=== PATIENT | male | born 1955 | race Caucasian/White ===

== ENCOUNTER 2018-04-14 16:17 | Outpatient (CLI) | payer SELFPAY | END 2018-04-14 16:18 | disposition critical access hospital (66) | LOC: EMS 16:17 | PROVIDERS: ATTEND Surgery | DX: R55 Syncope and collapse (principal); R53.1 Weakness; R42 Dizziness and giddiness | CPT/HCPCS: A0425; A0427 ==

== ENCOUNTER 2018-04-14 16:38 | Observation (INO) | payer SELFPAY ==
--- NOTE | 2018-04-14 16:53 | ED Physician Documentation ---
History of Present Illness - Stated complaint Stated Complaint: SYNCOPE - Chief complaint Chief Complaint: General - History obtained from History obtained from: Patient - History of Present Illness Timing: Today (Healthy 62-year-old gentleman. He was sitting on a barstool with friends. He had one beer. He was about to have a second 1, but started to feel flushed and then syncopized falling off the barstool without injury. He feels nauseous now and out of sorts but there is no associated chest pain or trouble breathing. No head injury or headache. He has never had a syncopal episode before.) - Additonal information Additional information: Prehospital his blood sugar was 162 and per report orthostatics were negative. Review of Systems Ten Systems: 10 systems reviewed and negative Constitutional: denies: Fever, Chills Cardiac: denies: Chest pain / pressure, Palpitations Respiratory: denies: Dyspnea, Cough GI: reports: Nausea. denies: Abdominal Pain, Vomiting PD PAST MEDICAL HISTORY - Past Medical History Past Medical History: No - Allergies Allergies/Adverse Reactions: Allergies Allergy/AdvReac Type Severity Reaction Status Date / Time No Known Drug Allergies Allergy Verified 04/14/18 16:49 - Social History Does the pt smoke?: Yes Smoking Status: Current every day smoker Does the pt drink ETOH?: Yes Does the pt have substance abuse?: No - Family History Family history: reports: Non contributory PD ED PE NORMAL - Vitals Vital signs reviewed: Yes - General General: Alert and oriented X 3, No acute distress - HEENT HEENT: PERRL, EOMI (No nystagmus) - Neck Neck: Supple, no meningeal sign, No bony TTP - Cardiac Cardiac: RRR, No murmur - Respiratory Respiratory: No respiratory distress, Clear bilaterally - Abdomen Abdomen: Normal bowel sounds, Soft, Non tender - Back Back: No CVA TTP, No spinal TTP - Derm Derm: Normal color, Warm and dry - Extremities Extremities: No edema, No calf tenderness / cord - Neuro Neuro: Alert and oriented X 3, Normal speech - Psych Psych: Normal mood, Normal affect Results - Vitals Vitals: Vital Signs - 24 hr 04/14/18 04/14/18 16:41 16:46 Temperature 36.1 C L 36.1 C L Heart Rate 76 73 Respiratory 22 16 Rate Blood Pressure 122/67 122/67 O2 Saturation 97 95 Oxygen O2 Source Room air - EKG (time done) 1648 Rate: Rate (enter#) (72) Rhythm: NSR (with PVC) Barre: Normal Intervals: Normal MO QRS: Normal Ischemia: Non specific changes (Lg R V2) Computer interpretation: Agree with computer - Labs Labs: Laboratory Tests 04/14/18 04/14/18 04/14/18 16:59 16:59 16:59 WBC 7.9 RBC 4.06 L Hgb 13.2 L Hct 39.1 L MCV 96.5 H MCH 32.6 H MCHC 33.8 RDW 13.4 Plt Count 297 MPV 7.4 Neut # (Auto) 4.3 Lymph # (Auto) 2.9 Gregg # (Auto) 0.4 Eos # (Auto) 0.2 Baso # (Auto) 0.0 Absolute Nucleated RBC 0.00 Nucleated RBC % 0.0 Sodium 135 Potassium 3.4 L Chloride 102 Carbon Dioxide 23 Anion Gap 10.0 BUN 11 Creatinine 0.8 Estimated GFR (MDRD) 98 Glucose 103 H Calcium 7.6 L Magnesium 2.0 Total Bilirubin 0.5 AST 15 ALT 13 Alkaline Phosphatase 64 Troponin I < 0.04 Total Protein 6.2 L Albumin 3.7 Globulin 2.5 Albumin/Globulin Ratio 1.5 Lipase 22 Ethyl Alcohol 17.6 PD MEDICAL DECISION MAKING - ED course ED course: This is a otherwise healthy 62-year-old gentleman who is a heavy smell her who had a syncopal episode that was only briefly premonition all falling off a barstool. He is not intoxicated. Lab work is unremarkable. EKG shows a large R-wave in V2, otherwise no ischemic changes. He is at high risk for cardiac syncope given his age and tobacco use and deserves prolonged monitoring so I called the hospitalist service at 5:28 PM. - Sepsis Event Vital Signs: Vital Signs - 24 hr 04/14/18 04/14/18 16:41 16:46 Temperature 36.1 C L 36.1 C L Heart Rate 76 73 Respiratory 22 16 Rate Blood Pressure 122/67 122/67 O2 Saturation 97 95 Oxygen O2 Source Room air Departure - Departure Disposition: ED Place in Observation Clinical Impression: Syncope Qualifiers: Syncope type: unspecified Qualified Code(s): R55 - Syncope and collapse Condition: Stable
[2018-04-14 17:02] LABS: BASOPHILS % (AUTO) 0.6 %; EOSINOPHILS # (AUTO) 0.2 10^3/uL (0.0-0.7); EOSINOPHILS % (AUTO) 2.5 %; HGB - HEMOGLOBIN 13.2 g/dL (14.0-18.0); LYMPHOCYTES # (AUTO) 2.9 10^3/uL (1.5-3.5); LYMPHOCYTES % (AUTO) 36.7 %; MEAN CORPUSCULAR HEMOGLOBIN 32.6 pg (27.0-31.0); MEAN CORPUSCULAR HGB CONC 33.8 g/dL (32.0-36.0); MEAN CORPUSCULAR VOLUME 96.5 fL (80.0-94.0); MEAN PLATELET VOLUME 7.4 fL (7.4-11.4); MONOCYTES # (AUTO) 0.4 10^3/uL (0.0-1.0); MONOCYTES % (AUTO) 5.6 %; NEUTROPHILS # (AUTO) 4.3 10^3/uL (1.5-6.6); NEUTROPHILS % (AUTO) 54.6 %; PLT - PLATELET COUNT 297 10^3/uL (130-450); RED BLOOD COUNT 4.06 10^6/uL (4.70-6.10); RED CELL DISTRIBUTION WIDTH 13.4 % (12.0-15.0); WHITE BLOOD COUNT 7.9 x10^3/uL (4.8-10.8)
[2018-04-14 17:16] LABS: ALBUMIN 3.7 g/dL (3.2-5.5); ALBUMIN/GLOBULIN RATIO 1.5 (1.0-2.2); BILIRUBIN,TOTAL 0.5 mg/dL (0.2-1.0); CALCIUM 7.6 mg/dL (8.5-10.3); CREATININE 0.8 mg/dL (0.6-1.2); TOTAL PROTEIN 6.2 g/dL (6.7-8.2)
[2018-04-14] MEDS ORDERED: SODIUM CHLORIDE 0.9% 1,000 ML IV ONE (19:22)
[2018-04-14] MEDS ORDERED: SODIUM CHLORIDE FLUSH 0.9% 10 ML SYRINGE IVP PRN (19:54)
--- NOTE | 2018-04-14 20:18 | HISTORY & PHYSICAL EXAMINATION ---
Chief Complaint - Chief Complaint Chief Complaint: syncope History of Present Illness - Admitted From Admitted From:: [facility] - History Obtained From History obtained from: Patient, ED physician Exam Limitations: none noted - History of Present Illness HPI Comment/Other: Mr. Brian Harrell is a very pleasant 62-year-old gentleman who has a history of smoking all of his adult life but who denies any type of past medical history other than some orthopedic surgeries, and who was having a beer earlier this evening with a friend when all of a sudden he began to feel flushed. He denies any type of dizziness or room spinning or amaurosis. He says he felt flushed and the next thing he knew he was surrounded by people while he was laying on the floor. He was brought up to his feet by his friends and sat down on the barstool again but again fell down, losing consciousness. He was then kept on the floor until he could be brought to the emergency department by EMS. At the emergency department the patient was assessed and found to be without any acute injury. He was nauseous and felt not quite himself mentally but otherwise denied any type of chest pain or difficulty breathing. There was no head injury noted. While in transport the patient's blood sugar was 162 and orthostatic checks no hypotension. An EKG showed a large R-wave in V2, otherwise there are no ischemic changes noted. At this time we will admit the patient to an observational bed on telemetry, monitor his EKG overnight, and obtain an echocardiogram, carotid ultrasound, and MRI of his brain. We will address any other comorbidities as they arise, again however the patient says that he takes no medications and has no prior medical history, and has unremarkable labs. History - Past Medical History Cardiovascular: reports: None Respiratory: reports: None Neuro: reports: None Endocrine/Autoimmune: reports: None GI: reports: None : reports: None HEENT: reports: None Psych: reports: None Musculoskeletal: reports: None Derm: reports: None MRSA Hx?: No - Past Surgical History Ortho: reports: ACL reconstruction, Other (Bilateral wrist fracture repairs with pinning.) - Family & Social History Family History: Mother: Alive and Well, Father: , Alzheimer's Disease, CVA/TIA (father also had hydrocephalus) Family History Comment/Other: The patient denies any knowledge of any family history of high blood pressure, heart disease, diabetes, or cancer. Living arrangement: At home Living Situation: Alone - Substance History Use: Uses substance without health or social issues: Tobacco, Alcohol Abuse: Recurrent use of substance despite neg consequences: NONE Dependence: Experiences withdrawal or developed tolerances: NONE Tobacco Details: Cigarettes - POLST Patient has POLST: No POLST Status: Full Code Meds/Allgy - Home Medications Home Medications: Ambulatory Orders Medication Instructions Recorded Confirmed No Known Home Medications [No 04/14/18 04/14/18 Known Home Medications] - Allergies Allergies/Adverse Reactions: Allergies Allergy/AdvReac Type Severity Reaction Status Date / Time No Known Drug Allergies Allergy Verified 04/14/18 16:49 Review of Systems - Constitutional Constitutional: denies: Fatigue, Fever, Chills, Night sweats - Eyes Eyes: denies: Pain, Irritation, Amaurosis, Blurred vision, Field loss, Vision loss, Dipolpia - Ears, Nose & Throat Ears, Nose & Throat: denies: Ear pain, Hearing loss, Hearing aids, Tinnitus, Vertigo, Nasal pain, Nasal discharge, Nosebleeds - Cardiovascular Cariovascular: reports: Lightheadedness, Syncope. denies: Irregular heart rate , Palpitations, Chest pain, Edema, Orthopnea - Respiratory Respiratory: denies: Cough, Sputum production, Wheezing, Snoring, Hemoptysis, Orthopnea, SOB at rest, SOB with exertion - Gastrointestinal Gastrointestinal: denies: Abdominal pain, Abdominal distention, Constipation, Diarrhea, Rectal bleeding, Nausea, Vomiting - Genitourinary Genitourinary: denies: Dysuria, Frequency, Urgency, Hematuria - Musculoskeletal Musculoskeletal: denies: Muscle pain, Back pain, Muscle aches, Stiffness - Integumentary Integumentary: denies: Rash, Pruritis, Lesions, Dryness - Neurological Neurological: reports: General weakness, Other (syncope x 2). 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 denies: Depression, Anxiety, Suicidal, Delusions - Endocrine Endocrine: denies: Polyuria, Polydypsia, Polyphagia - Hematologic/Lymphatic Hematologic/Lymphatic: denies: Anemia, Bruising, Petechiae, Lymphadenopathy - All Other Systems All Other Systems: reports: Reviewed and negative Exam - Vital Signs Reviewed Vital Signs: Yes Vital Signs: Vital Signs x48h Temp Pulse Resp BP Pulse Ox 04/14/18 19:58 83 19 120/77 96 04/14/18 19:10 36.4 C L 86 17 130/80 97 04/14/18 18:00 36.1 C L 70 16 100/65 97 04/14/18 16:46 36.1 C L 73 16 122/67 95 04/14/18 16:41 36.1 C L 76 22 122/67 97 - Physical Exam General Appearance: positive: No acute distress, Alert Eyes Bilateral: positive: Normal inspection, PERRL, EOMI, No lid inflammation, Conjunctivae nml, No scleral icterus ENT: positive: ENT inspection nml, Pharynx nml, No signs of dehydration. negative: Oral lesions Neck: positive: Nml inspection, Thyroid nml, No JVD, Trachea midline. negative : Thyromegaly Respiratory: positive: Chest non-tender, No respiratory distress, Breath sounds nml. negative: Wheezes, Rales, Rhonchi Cardiovascular: positive: Regular rate & rhythm, No murmur, No gallop Peripheral Pulses: positive: 1+ Abdomen: positive: Non-tender, No organomegaly, Nml bowel sounds, No distention. negative: Guarding, Rebound Back: positive: Nml inspection. negative: CVA tenderness (R), CVA tenderness (L ) Skin: positive: Color nml, No rash, Warm, Dry. negative: Cyanosis Extremities: positive: Non-tender, Full ROM, Nml appearance, No pedal edema Neurologic/Psychiatric: positive: Oriented x3, CN's nml (2-12), Motor nml, Sensation nml, Mood/affect nml Conclusion/Plan - Problem List (1) Syncope Conclusion/Plan: The patient admits to a syncopal event earlier today which was witnessed and without any seizures. Shortly afterwards the patient was brought to his feet by his friends and again passed out. This seems more like one extended event in 2 separate events. At any rate the patient will have a workup consisting of an echocardiogram, carotid ultrasound, MRI of his brain. He will be on telemetry in an observation bed overnight. Qualifiers: Syncope type: unspecified Qualified Code(s): R55 - Syncope and collapse (2) Macrocytic anemia Conclusion/Plan: The patient has mild anemia with macrocytosis. His RDW was within normal limits. He admits to only drinking 1 beer 3 times a week however this may not be completely accurate. I will check his B12 and folate levels. - Lab Results Lab results reviewed: Yes Fish Bones: 04/14/18 16:59 04/14/18 16:59 Core Measures - Anticipated LOS I expect patient to be DC'd or transferred within 96 hours.: Yes - DVT/VTE - Prophylaxis VTE/DVT Device ordered at admit?: Yes
[2018-04-14] MEDS: D5.45NS W/20 MEQ KCL 1,000 ML IV SCH (21:21)
--- NOTE | 2018-04-14 22:42 | XRAY Report ---
Procedure Date: 04/14/2018 Accession Number: [id number] / [id number] Procedure: XR - Chest 1 View X-Ray CPT Code: 04504 FULL RESULT: EXAM: CHEST RADIOGRAPHY EXAM DATE: 04/14/2018 10:20 PM. CLINICAL HISTORY: Syncope in a long time smoker. COMPARISON: 11/08/2010. TECHNIQUE: 1 view. FINDINGS: Lungs/Pleura: No focal opacities evident. No pleural effusion. No pneumothorax. Mediastinum: Within exam limitations, the cardiomediastinal contour is normal. Other: No bony abnormality noted. IMPRESSION: Normal single view chest. RADIA
--- NOTE | 2018-04-15 02:59 | Ultrasound Report ---
Procedure Date: 04/14/2018 Accession Number: [id number] / [id number] Procedure: US - Carotid Doppler Complete CPT Code: FULL RESULT: EXAM: BILATERAL CAROTID AND VERTEBRAL ARTERY DUPLEX DOPPLER ULTRASOUND: EXAM DATE: 04/14/2018 11:26 PM CLINICAL HISTORY: Syncope. COMPARISON: None. TECHNIQUE: Grayscale imaging, color Doppler, and duplex spectral Doppler were used to evaluate the carotid and vertebral arteries bilaterally. Static images were obtained. FINDINGS: No significant plaque is identified in the right or left common or internal carotid arteries. Normal antegrade flow is present in bilateral vertebral arteries. VELOCITIES (cm/sec): Right: RCCA Mid: PSV 94.2 cm/sec. RCCA Dist: PSV 100.7 cm/sec. MILAGROS Prox: PSV 111.2 cm/sec, EDV 25.3 cm/sec. MILAGROS Mid: PSV 80.9 cm/sec, EDV 27.8 cm/sec. MILAGROS Dist: PSV 52.3 cm/sec, EDV 19.0 cm/sec. RECA: PSV 166 cm/sec. RVA: PSV 71.3 cm/sec. RVA flow direction: Antegrade. ICA/CCA: 0.86 Left: LCCA Mid: PSV 116.2 cm/sec. LCCA Dist: PSV 117.5 cm/sec. LICA Prox: PSV 94.7 cm/sec, EDV 31.6 cm/sec. LICA Mid: PSV 80.9 cm/sec, EDV 29 cm/sec. LICA Dist: PSV 69.5 cm/sec, EDV 15 cm/sec. LECA: PSV 87.2 cm/sec. LVA: PSV 99.8 cm/sec. LVA flow direction: Antegrade. ICA/CCA: 0.69 ICA diameter stenosis: Right: <50% by velocity and <70% by NASCET criteria. Left: <50% by velocity and <70% by NASCET criteria. IMPRESSION: 1. Mild bilateral carotid artery plaquing. 2. In the right carotid artery there are no elevated carotid artery velocities to suggest hemodynamically significant stenosis. 3. In the left carotid artery there are no elevated carotid artery velocities to suggest hemodynamically significant stenosis. 4. Normal antegrade flow is present in bilateral vertebral arteries. General Recommendations: Stenosis =50% ICA - Follow-up ultrasound 6-12 months Stenosis <50% ICA - High Risk Patient with plaque - Follow-up ultrasound 1-2 years Normal Study but High Risk Patient - Follow-up ultrasound 3-5 years Management recommendations and diagnostic criteria are based on current IAC endorsed standards in Carotid Artery Stenosis: Grayscale and Doppler Ultrasound Diagnosis. Validated velocity measurements with angiographic measurements and velocity criteria are extrapolated from diameter data as defined by the Society of Radiologists in Ultrasound Consensus Conference Radiology 2003; 229;340-346. RADIA
[2018-04-15] MEDS: SODIUM CHLORIDE FLUSH 0.9% 10 ML SYRINGE IVP SCH ×2 (03:46→08:02)
[2018-04-15 05:41] LABS: HGB - HEMOGLOBIN 13.6 g/dL (14.0-18.0); MEAN CORPUSCULAR HEMOGLOBIN 32.8 pg (27.0-31.0); MEAN CORPUSCULAR HGB CONC 33.9 g/dL (32.0-36.0); MEAN CORPUSCULAR VOLUME 96.7 fL (80.0-94.0); MEAN PLATELET VOLUME 7.6 fL (7.4-11.4); RED BLOOD COUNT 4.16 10^6/uL (4.70-6.10); RED CELL DISTRIBUTION WIDTH 12.9 % (12.0-15.0); WHITE BLOOD COUNT 9.4 x10^3/uL (4.8-10.8)
[2018-04-15 05:44] LABS: CALCIUM 8.1 mg/dL (8.5-10.3); CREATININE 0.8 mg/dL (0.6-1.2)
[2018-04-15] MEDS: D5.45NS W/20 MEQ KCL 1,000 ML IV SCH (06:38)
[2018-04-15 07:55] LABS: FOLATE 9.82 ng/mL (5.90 - >24.8)
[2018-04-15] MEDS ORDERED: POLYETHYLENE GLYCOL 3350 17 GM PACKET PO SCH (09:00)
--- NOTE | 2018-04-15 11:52 | MRI Report ---
Procedure Date: 04/15/2018 Accession Number: [id number] / [id number] Procedure: MRI - Brain W/O CPT Code: FULL RESULT: EXAM: MRI BRAIN WITHOUT CONTRAST EXAM DATE: 04/15/2018 11:35 AM. CLINICAL HISTORY: Syncope. COMPARISON: None. TECHNIQUE: Multiplanar, multisequence T1-weighted and fluid-sensitive MR sequences of the brain were performed. Sequences optimized for routine evaluation. Other: None. IV Contrast: None. FINDINGS: Brain Volume: Normal for age. Parenchyma/Dura: No mass, acute infarct or hemorrhage. Allowing for given age, no significant white matter signal changes. Ventricles/Cisterns: No hydrocephalus. No abnormal extra-axial fluid collection or hemorrhage. Orbits: Symmetric and unremarkable. Sella Turcica: The pituitary gland, cavernous sinuses, suprasellar cistern and optic chiasm are unremarkable. Vasculature: Normal signal flow void is seen in the major arterial structures at the skull base. Sinuses: Mild to moderate ethmoid and frontal sinus mucosal thickening. IMPRESSION: No MRI evidence for acute intracranial abnormality. Frontal and ethmoid sinus mucosal thickening. RADIA
[2018-04-15] MEDS ORDERED: ACETAMINOPHEN 325 MG TABLET PO PRN (13:14)
--- NOTE | 2018-04-15 13:27 | DISCHARGE SUMMARY ---
Discharge Summary Admit Date: 04/14/18 Discharge Date: 04/15/18 Discharging Provider: JUSTIN Esquivel Primary Care Provider: Dr. Curry, [facility] 10 years ago. Code Status: Attempt Resuscitation Condition at Discharge: Good Discharge Disposition: 01 Home, Self Care - DIAGNOSES Admission Diagnoses: Syncope and collapse (R55) Nutritional anemia, unspecified (D53.9) Discharge Diagnoses with Status of Each Condition: Syncope (R55) of unknown etiology, instructed not drive until further testing, and medically cleared by PCP or race board attendant/neurologist. Macrocytic anemia (D53.9) new on this admission, iron studies were normal. Recommend follow up. Recent weight loss (R63.4) ~10-20 lbs in the past 6 months, new on this admission. Bradycardia (R00.1) new on this admission, no concluding causes with our limited testing, 40-60 bpm on telemetry, stable without pauses. Tobacco dependence (F17.200) chronic, no interest in quitting, stable, smoking to continue. - HPI History of Present Illness: Po Harrell is a very pleasant 62-year-old male withe a past medical history of tobacco dependence, and dizziness. The patient was having a beer earlier this evening with a friend when all of a sudden he began to feel flushed, said one word and the friend he was with, states that he turned "ghost white, then fell to the floor as he was unconscious. Shortly after arrival, the patient denies any type of dizziness or room spinning or amaurosis. He says he felt flushed and the next thing he knew he was surrounded by people while he was laying on the floor. He was brought up to his feet by his friends and sat down on the barstool again but again fell down, losing consciousness. He was then kept on the floor until he could be brought to the emergency department by EMS. Once in the ED the patient was assessed and found to be without any acute injury. He was nauseous and felt not quite himself mentally but otherwise denied any type of chest pain or difficulty breathing. There was no head injury noted. While in transport the patient's blood sugar was 162 and orthostatic checks no hypotension. An EKG showed a large R-wave in V2, otherwise there are no ischemic changes noted. The patient was admitted in observational status for further work up for this syncope. He will be monitored on telemetry, obtain an echocardiogram, carotid ultrasound, and MRI of his brain. We will address any other comorbidities as they arise, although, the patient says that he takes no medications and has no prior medical history, and has unremarkable labs. - HOSPITAL COURSE Hospital Course: The patient underwent the usual syncope work up including ortho static vital signs, carotid dopplers, a head MRI, and an echocardiogram. None of these tests can explain this syncope episode. The patient was noted to be bradycardia with heart rates between 40-60 on telemetry. Disposition: The patient was considered to be in medical stable condition, and was instructed NOT to drive until further testing and can be approved by PCP. - ALLERGIES Allergies/Adverse Reactions: Allergies Allergy/AdvReac Type Severity Reaction Status Date / Time No Known Drug Allergies Allergy Verified 04/14/18 16:49 - MEDICATIONS Home Medications: Ambulatory Orders Medication Instructions Recorded Confirmed No Known Home Medications [No 04/14/18 04/15/18 Known Home Medications] - PHYSICAL EXAM AT DISCHARGE General Appearance: positive: No acute distress, Alert Eyes Bilateral: positive: Normal inspection, PERRL ENT: positive: ENT inspection nml, Pharynx nml, No signs of dehydration Neck: positive: Nml inspection, Thyroid nml, No JVD Respiratory: positive: Chest non-tender, No respiratory distress, Breath sounds nml Cardiovascular: positive: No gallop, Systolic murmur Peripheral Pulses: positive: 2+ Abdomen: positive: Non-tender, Nml bowel sounds, No distention Back: positive: Nml inspection Skin: positive: No rash, Warm, Dry Extremities: positive: Non-tender, Full ROM, Nml appearance, No pedal edema Neurologic/Psychiatric: positive: Oriented x3, CN's nml (2-12), Motor nml, Sensation nml, Mood/affect nml Reflexes: Bicep (R): 3+, Bicep (L): 3+ - LABS Result Diagrams: 04/15/18 05:25 04/15/18 05:25 - DIAGNOSTIC IMAGING Diagnostic Imaging Results: Prelim report reviewed, Final report reviewed Diagnostic Imaging Results Comments: EXAM: CHEST RADIOGRAPHY EXAM DATE: 04/14/2018 10:20 PM. IMPRESSION: Normal single view chest. EXAM: BILATERAL CAROTID AND VERTEBRAL ARTERY DUPLEX DOPPLER ULTRASOUND EXAM DATE: 04/14/2018 11:26 PM IMPRESSION: 1. Mild bilateral carotid artery plaquing. 2. In the right carotid artery there are no elevated carotid artery velocities to suggest hemodynamically significant stenosis. 3. In the left carotid artery there are no elevated carotid artery velocities to suggest hemodynamically significant stenosis. 4. Normal antegrade flow is present in bilateral vertebral arteries. EXAM: MRI BRAIN WITHOUT CONTRAST EXAM DATE: 04/15/2018 11:35 AM. IMPRESSION: No MRI evidence for acute intracranial abnormality. Frontal and ethmoid sinus mucosal thickening. - FOLLOW UP Follow Up: Disposition: 01 Home, Self Care Condition: Good Diet: Regular Activity Restrictions: No Restrictions Shower Restrictions: No Driving Restrictions: No Weight Bearing: Full Weight Additional Instructions or Follow Up instructions: You were admitted for syncope (passing out) and further testing has ruled out a stroke or any injury to your brain. A carotid doppler study was performed and showed that the vessels leading to your brain also were normal without any blockages. Our preliminary conclusion was that the alcohol in your system caused you to become low on fluid (inside of your vessels), and this may have caused you to loose consciousness. The only other abnormal finding is that your heart stayed between 40-60 beats per minute while you were on a heart monitor in the hospital. An echocardiogram was completed and those final results are still pending, although preliminary results show a healthy, good functioning heart with no valve abnormalities. A healthy amount of alcohol per day is: For men under age 65, unhealthy use is more than 14 standard drinks per week or more than 4 drinks on any day. Women and adults 65 years and older: More than 7 standard drinks per week on average. More than 3 drinks on any day. [facility] [address] [facility] Department of Licensing Heart condition People with heart disease, high blood pressure or circulation problems, or those in danger of a blackout, fainting, or a heart attack, should not get behind the wheel. If you are being treated by a doctor for a heart condition, ask if the condition could affect your driving ability. It is advised that you not drive until you undergo further testing for your safety and the safety of others. You have a condition called Syncope of undetermined etiology, which requires a one month symptom free waiting time to resume driving, or further testing in determining the cause. You need prompt follow up with a primary doctor, who can refer you to a race board attendant. You will likely wear a Holter monitor for at least 48 hours. Stay hydrated and eat regularly. You should follow up with your PCP within one week. - TIME SPENT Time Spent in Discharge (Minutes): 55
[2018-04-15 15:19] LABS: % IRON SATURATION 33 % (20-50); IRON 91 ug/dL (45-182); TOTAL IRON BINDING CAPACITY 273 ug/dL (250-450); TRANSFERRIN 195 mg/dL (180-329)
[2018-04-15 15:29] LABS: HB2 TOTAL 14.4 g/dL; HEMOGLOBIN A1C 0.53 g/dL; HEMOGLOBIN A1C % 5.5 % (4.6-6.2)
[2018-04-15 15:38] VITALS: BP 106/53
== END 2018-04-15 16:51 | disposition home or self-care (01) ==
LOC: EDUNIT# → ED 16:38 → MS2 19:54
PROVIDERS: ADMIT Hospitalist; ATTEND Nurse Practitioner
DX: R55 Syncope and collapse (principal); D53.9 Nutritional anemia, unspecified; R63.4 Abnormal weight loss; Z68.1 Body mass index [BMI] 19.9 or less, adult; R00.1 Bradycardia, unspecified; F17.210 Nicotine dependence, cigarettes, uncomplicated; Z72.89 Other problems related to lifestyle
CPT/HCPCS: 36415; 70551; 71045; 80048; 80053; 80320; 82607; 82746; 83036; 83540; 83690; 83735; 84443; 84466; 84484; 85025; 85027; 93005; 93306; 93880; 96360; 96361; 99284; G0378; 82270; 99283

== ENCOUNTER 2023-09-22 10:45 | Outpatient (CLI) | payer MEDICARE ==
[2023-09-22 18:18] LABS: BASOPHILS % (AUTO) 0.4 %; EOSINOPHILS # (AUTO) 0.2 10^3/uL (0.0-0.7); EOSINOPHILS % (AUTO) 1.6 %; HCT - HEMATOCRIT 36.7 % (42.0-52.0); HGB - HEMOGLOBIN 11.7 g/dL (14.0-18.0); LYMPHOCYTES # (AUTO) 2.4 10^3/uL (1.5-3.5); LYMPHOCYTES % (AUTO) 24.5 %; MEAN CORPUSCULAR HGB CONC 31.9 g/dL (32.0-36.0); MEAN CORPUSCULAR VOLUME 100.3 fL (80.0-94.0); MEAN PLATELET VOLUME 9.9 fL (7.4-11.4); MONOCYTES # (AUTO) 0.6 10^3/uL (0.0-1.0); MONOCYTES % (AUTO) 6.3 %; NEUTROPHILS # (AUTO) 6.5 10^3/uL (1.5-6.6); NEUTROPHILS % (AUTO) 66.8 %; PLT - PLATELET COUNT 631 10^3/uL (130-450); RED BLOOD COUNT 3.66 10^6/uL (4.70-6.10); RED CELL DISTRIBUTION WIDTH 12.9 % (12.0-15.0); WHITE BLOOD COUNT 9.8 x10^3/uL (4.8-10.8)
== END 2023-09-22 11:00 | disposition home or self-care (01) ==
LOC: LAB.N 10:45
PROVIDERS: ATTEND Physician Assistant Medical
DX: T81.41XA Infection following a procedure, superficial incisional surgical site, initial encounter (principal)
CPT/HCPCS: 36415; 85025; 87070; 87077; 87205

== ENCOUNTER 2023-10-22 10:43 | Outpatient (CLI) | payer MEDICARE ==
[2023-10-22 17:33] LABS: BASOPHILS % (AUTO) 0.5 %; EOSINOPHILS # (AUTO) 0.4 10^3/uL (0.0-0.7); HCT - HEMATOCRIT 31.5 % (42.0-52.0); HGB - HEMOGLOBIN 9.7 g/dL (14.0-18.0); LYMPHOCYTES # (AUTO) 1.9 10^3/uL (1.5-3.5); LYMPHOCYTES % (AUTO) 32.9 %; MEAN CORPUSCULAR HEMOGLOBIN 31.1 pg (27.0-31.0); MEAN CORPUSCULAR HGB CONC 30.8 g/dL (32.0-36.0); MEAN PLATELET VOLUME 9.5 fL (7.4-11.4); MONOCYTES # (AUTO) 0.5 10^3/uL (0.0-1.0); MONOCYTES % (AUTO) 9.3 %; NEUTROPHILS # (AUTO) 2.9 10^3/uL (1.5-6.6); NEUTROPHILS % (AUTO) 50.1 %; PLT - PLATELET COUNT 369 10^3/uL (130-450); RED BLOOD COUNT 3.12 10^6/uL (4.70-6.10); RED CELL DISTRIBUTION WIDTH 13.7 % (12.0-15.0); WHITE BLOOD COUNT 5.8 x10^3/uL (4.8-10.8)
[2023-10-22 18:01] LABS: ALBUMIN 4.2 g/dL (3.2-5.5); ALBUMIN/GLOBULIN RATIO 1.3 (1.0-2.2); ALKALINE PHOSPHATASE 110 IU/L (42-121); ALT ALANINE AMINOTRANSFERASE 10 IU/L (10-60); AST ASPARTATE AMINOTRANSFERASE 13 IU/L (10-42); BILIRUBIN,TOTAL 0.2 mg/dL (0.2-1.0); BUN - BLOOD UREA NITROGEN 17 mg/dL (6-20); CALCIUM 8.9 mg/dL (8.5-10.3); CARBON DIOXIDE - CO2 24 mmol/L (21-32); CHLORIDE 102 mmol/L (101-111); CHOL/HDL RATIO 3.1 (<5.0); CHOLESTEROL 168 mg/dL; GFR - MDRD 75 (>89); GLUCOSE 80 mg/dL (74-104); HDL CHOLESTEROL 54 mg/dL; LDL CHOLESTEROL,CALCULATED 85 mg/dL; LDL/HDL RATIO 1.6 (<3.6); POTASSIUM 4.4 mmol/L (3.5-4.5); SODIUM 133 mmol/L (135-145); TOTAL PROTEIN 7.5 g/dL (6.4-8.9); TRIGLYCERIDES 147 mg/dL (48-352); VLDL CHOLESTEROL 29 mg/dL
[2023-10-22 18:16] LABS: THYROID STIMULATING HORMONE 1.25 uIU/mL (0.34-5.60)
== END 2023-10-22 10:44 | disposition home or self-care (01) ==
LOC: LAB.N 10:43
PROVIDERS: ATTEND Nurse Practitioner Family
DX: Z00.00 Encounter for general adult medical examination without abnormal findings (principal)
CPT/HCPCS: 36415; 80053; 80061; 83721; 84153; 84443; 85025